=== PATIENT | female | born 1995 | race Caucasian/White ===

== ENCOUNTER 2021-04-09 21:54 | Emergency (ER) | payer MEDICAID ==
[~2021-04-09] VITALS: Ht 147.3 cm; Wt 67.1 kg
[~2021-04-09 21:54] MED LIST: PREN1SGL44 PO
[2021-04-09 21:59] VITALS: BP 126/84
--- NOTE | 2021-04-09 22:08 | NUR ---
TO BED 11 AMBULATORY
--- NOTE | 2021-04-09 22:10 | NUR ---
PATIENT AMBULATED TO THE BATHROOM FOR URINE COLLECTION
--- NOTE | 2021-04-09 22:40 | NUR ---
INTERPRETOR DEREK ID # [id number].
--- NOTE | 2021-04-09 22:41 | NUR ---
PT BIB SELF FOR C/C VAGINAL BLEED X 3 WEEKS. PT REPORTS SHE IS 10 WEEKS . PT REPORTS BLOOD IN TOILET PAPER WHEN WIPING ONLY. THIS IS PATIENTS 2TH WITH 3 LIVING CHILDREN. DENIES CRAMPING OR PAIN. DENIES S/SX OF UTI. DENIES FALLS OR TRAUMA TO ABDOMEN. MED HX: DENIES ALLERGIES: NKA
--- NOTE | 2021-04-09 22:47 | NUR ---
Dr. Aquino examining patient.
[2021-04-09] MEDS ORDERED: NACL 0.9% 1,000 ML IV ONE (23:00)
--- NOTE | 2021-04-09 23:14 | NUR ---
ULTRASOUND AT BEDSIDE.
--- NOTE | 2021-04-09 23:18 | NUR ---
LABS AND URINE TAKEN TO LAB, PER ADEL TO PLACE ON COUNTER.
[2021-04-09 23:33] LABS: APPEARANCE,URINE CLEAR (CLEAR); BILIRUBIN,URINE NEGATIVE (NEGATIVE); BLOOD, URINE 3+ (NEGATIVE); COLOR,URINE RED (YELLOW); LEUKOCYTE ESTERASE ,URINE 1+ (NEGATIVE); NITRITE, URINE NEGATIVE (NEGATIVE); PH,URINE 7.5 (5.0-9.0); UGLUCOSE NEGATIVE (NEGATIVE)
[2021-04-09 23:35] LABS: BASOPHILS # (AUTO) 0.5 K/uL (0.00-0.22); BASOPHILS % (AUTO) 4.2 % (0.0-2.0); EOSINOPHILS # (AUTO) 0.5 K/uL (0-0.4); EOSINOPHILS % (AUTO) 4.5 % (0.0-4.0); HEMATOCRIT 38.9 % (36-48); HEMOGLOBIN 12.9 g/dL (12.0-16.0); LYMPHOCYTES # (AUTO) 1.8 K/uL (2.5-16.5); LYMPHOCYTES % (AUTO) 15.6 % (20.5-51.1); MEAN CORPUSCULAR HEMOGLOBIN 29 pg (27-31); MEAN CORPUSCULAR HGB CONC 33 g/dL (33-37); MEAN CORPUSCULAR VOLUME 87.2 fL (80-94); MONOCYTES # (AUTO) 0.7 K/uL (0.8-1.0); NEUTROPHILS # (AUTO) 7.9 K/uL (1.8-7.7); NEUTROPHILS % (AUTO) 69.7 % (42.2-75.2); PLATELET COUNT (AUTO) 345 K/uL (140-450); RED BLOOD CELL COUNT(AUTO) 4.46 MIL/uL (4.20-5.40); RED CELL DISTRIBUTION WIDTH 12.9 % (11.6-13.7); WHITE BLOOD COUNT (AUTO) 11.3 K/uL (4.8-10.8)
[2021-04-09 23:55] LABS: ALBUMIN 3.7 g/dL (3.4-5.0); ANION GAP 13.7 (8-16); CARBON DIOXIDE 24.4 mmol/L (21-32); CREATININE 0.7 mg/dL (0.6-1.3); POTASSIUM 4.1 mmol/L (3.5-5.1); TOTAL BILIRUBIN 0.2 mg/dL (0.0-1.0)
[2021-04-10 00:03] LABS: RBC,URINE 50-80 /HPF (0-5)
[2021-04-10] MEDS ORDERED: CEPH-588 PO (00:34)
[2021-04-10] MEDS ORDERED: cephALEXin 500 MG CAP PO ONE (00:35)
--- NOTE | 2021-04-10 00:55 | NUR ---
d/c with VSS> d/c education given. opportunity to ask questions given and answered. referral to OBGYN Dr. Delaney given. rx of keflex given.
--- NOTE | 2021-04-16 19:48 | NUR ---
LATE ENTRY- 0.9% NS INFUSION DISCONTINUED AT 0045
== END 2021-04-10 00:55 | disposition home or self-care (01) ==
LOC: MED 21:54
DX: O20.0 Threatened abortion (principal); O23.41 Unspecified infection of urinary tract in pregnancy, first trimester; Z3A.10 10 weeks gestation of pregnancy; Z79.899 Other long term (current) drug therapy
CPT/HCPCS: 36415; 76801; 80053; 81001; 84702; 85025; 86900; 86901; 87086; 96360; 96361; 99284; J7030